=== PATIENT | female | born 1955 | race Caucasian/White ===

== ENCOUNTER 2021-10-03 09:22 | Day surgery (SDC) | payer MEDICARE, OTHER ==
[~2021-10-03 09:22] MED LIST: Sodium Chloride 0.9% 10 ML Syringe FLUSH PRN
[2021-10-03] MEDS: Lactated Ringers 1,000 ML IV SCH (09:39)
[2021-10-03] MEDS ORDERED: fentaNYL 100 MCG/2 ML SDV ONE (10:47)
[2021-10-03] MEDS ORDERED: Propofol 200 MG/20 ML SDV ONE (10:47)
== END 2021-10-03 13:39 | disposition home or self-care (01) ==
LOC: VM.SDS 09:22
PROVIDERS: ATTEND Student in an Organized Health Care Education/Training Program
DX: K52.832 Lymphocytic colitis (principal); K57.30 Diverticulosis of large intestine without perforation or abscess without bleeding; F33.42 Major depressive disorder, recurrent, in full remission; F41.1 Generalized anxiety disorder; E03.9 Hypothyroidism, unspecified; F43.10 Post-traumatic stress disorder, unspecified; E78.00 Pure hypercholesterolemia, unspecified; E66.9 Obesity, unspecified; Z79.899 Other long term (current) drug therapy; Z88.5 Allergy status to narcotic agent; Z98.890 Other specified postprocedural states; Z88.8 Allergy status to other drugs, medicaments and biological substances; Z68.30 Body mass index [BMI] 30.0-30.9, adult
CPT/HCPCS: 00811; 88305; J2704; J3010; J7120

== ENCOUNTER 2022-03-22 12:59 | Emergency (ER) | payer MEDICARE, OTHER ==
[2022-03-22] MEDS: Ketorolac 30 MG/ML SDV IM ONE (13:28)
[2022-03-22 14:13] LABS: RESPIRATORY SYNCYTIAL VIR NAA NEGATIVE (NEGATIVE)
[2022-03-22 14:14] LABS: CORONAVIRUS COVID-19 NAA POSITIVE (NEGATIVE)
== END 2022-03-22 14:44 | disposition home or self-care (01) ==
LOC: VM.ED 12:59
DX: U07.1 COVID-19 (principal); E66.9 Obesity, unspecified; Z68.30 Body mass index [BMI] 30.0-30.9, adult; Z88.5 Allergy status to narcotic agent; Z86.16 Personal history of COVID-19; Z91.048 Other nonmedicinal substance allergy status
CPT/HCPCS: 0241U; 96372; 99283; J1885